=== PATIENT | female | born 1995 | race Caucasian/White ===

== ENCOUNTER 2017-06-26 20:10 | Emergency (ER) | payer MEDICAID ==
--- NOTE | 2017-06-26 20:40 | ED Physician Chart ---
ED Chief Complaint/HPI - Patient Information Date Seen:: 06/26/17 Time Seen:: 20:25 Chief Complaint:: Recurrent nausea/vomiting for about a month. History of Present Illness:: Pt was brought in by private auto. Pt is with LNMP 03/13/17 and with confirmed single IUP by pelvic sonogram 2 days ago at [facility]. Pt has had repeated ER visits to various local ER's because of recurrent nausea/vomiting related to her . Pt has been followed with her [employer] [facility] physician Dr. Evans. Pt has had recurrent nausea/vomiting today with vomitus consists of gastric content. No hematemesis. Last BM about 2 days which was normal in color/consistency. No hematochezia or melena. No abdominal pain or discomfort. No fever. No lightheadedness. Allergies:: Allergies Allergy/AdvReac Type Severity Reaction Status Date / Time No Known Allergies Allergy Verified 06/26/17 20:32 Vitals:: Vital Signs - 8 hr 06/26/17 20:14 Temp 98.2 F HR 123 RR 18 BP 125/74 O2 Sat % 96 Historian:: Patient Family MD/PCP:: Dr. Evans ([employer] [facility]) LMP:: 03/13/17 Review:: Nurse's Note Reviewed ED Review of Systems - Review of Systems General/Constitutional: No fever, No chills, No weight loss, No weakness, No edema, No loss of appetite Skin: No skin lesions, No rash, No bruising Head: No headache, No light-headedness Eyes: No loss of vision, No pain, No diplopia ENT: No earache, No nasal drainage, No sore throat Neck: No neck pain, No swelling, No stiffness, No mass noted Cardio Vascular: No chest pain, No palpitations, No edema Pulmonary: No SOB, No cough, No wheezing GI: Nausea, Vomiting, No diarrhea, No pain, No melena, No hematochezia, No constipation, No hematemesis G/U: No dysuria, No frequency, No hematuria Press Hand: No vaginal discharge, No abnormal vaginal bleed Musculoskeletal: No bone or joint pain, No back pain, No muscle pain Endocrine: No polyuria, No polydipsia Psychiatric: No prior psych history Hematopoietic: No bruising, No lymphadenopathy Allergic/Immuno: No urticaria, No angioedema Neurological: No syncope, No focal symptoms, No weakness, No paresthesia, No headache, No dizziness, No confusion ED Past Medical History - Past Medical History Past Medical History: No significant medical hx Family History: Diabetes Melitus (mother) Social History: Non Smoker, No Alcohol, No Drug Use, Single, Other (lives with her significant other.) Employment:: unemployed. Surgical History: None Psychiatricy History: None Medication: Reviewed Family Medical History - Family Member Mother Hx Family Diabetes: Yes ED Physical Exam - Physical Examination General/Constitutional: Awake, Well-developed, well-nourished, Alert, No distress, GCS 15, Non-toxic appearing, Ambulatory Other Gen/Cons comments:: Breathes comfortably, speaks clearly, interacts normally, and ambulates without difficulty. Head: Atraumatic Eyes: Lids, conjuctiva normal, PERRL, EOMI Other Eyes comments:: no scleral icterus. Skin: No rash, No skin lesions, No ecchymosis, No lymphadenopathy ENMT: External ears, nose nl, Nasal exam nl, Lips, teeth, gums nl, Oropharynx nl Other ENMT comments:: Mucous membrane slightly dry. Neck: Nontender, Full ROM w/o pain, No nuchal rigidity, No mass, No stridor Respiratory: Nl effort/Exclusion, Clear to Auscultation, No Wheeze/Rhonchi/Rales Cardio Vascular: No murmur, gallop, rubs Other Cardio Vascular comments:: Regular rhythm with mild tachycardia. HR 112. GI: No tenderness/rebounding/guarding, No organomegaly, Normal BS's, Nondistended Other GI comments:: Abdomen is obese but soft. : No CVA tenderness Extremities: No tenderness or effusion, Full ROM, normal strength in all extremities, No edema, Normal digits & nails Neuro/Psych: Alert/oriented (oriented x 3), Mood normal, Normal gait, No focal deficits ED Labs/Radiology/EKG Results - Lab Results Results: Laboratory Tests 06/26/17 06/26/17 06/26/17 20:59 20:59 20:59 WBC 17.0 H RBC 5.17 H Hgb 15.5 Hct 45.4 MCV 87.9 MCH 30.0 MCHC Differential 34.2 RDW 12.0 Plt Count 279 MPV 10.5 Neutrophils % 81.8 H Lymphocytes % 9.1 L Monocytes % 6.0 Eosinophils % 0.1 Basophils % 3.0 H Sodium 132 L Potassium 2.9 L* Chloride 99 Carbon Dioxide 13.4 L Anion Gap 22.5 H BUN 6 L Creatinine 0.6 Est GFR ( Amer) > 60.0 Est GFR (Non-Af Amer) > 60.0 BUN/Creatinine Ratio 10.0 Glucose 110 H Whole Bld Lactic Acid 1.23 Calcium 10.8 H Urine Source Urine Color Urine Clarity Urine pH Ur Specific [place] Urine Protein Urine Glucose (UA) Urine Ketones Urine Blood Urine Nitrate Urine Bilirubin Urine Urobilinogen Ur Leukocyte Esterase Urine RBC Urine WBC Ur Epithelial Cells Amorphous Sediment Urine Bacteria Hyaline Casts Urine Mucus 06/26/17 21:00 WBC RBC Hgb Hct MCV MCH MCHC Differential RDW Plt Count MPV Neutrophils % Lymphocytes % Monocytes % Eosinophils % Basophils % Sodium Potassium Chloride Carbon Dioxide Anion Gap BUN Creatinine Est GFR ( Amer) Est GFR (Non-Af Amer) BUN/Creatinine Ratio Glucose Whole Bld Lactic Acid Calcium Urine Source CLEAN C Urine Color YELLOW Urine Clarity HAZY Urine pH 6.0 Ur Specific [place] >= 1.030 Urine Protein 100 H Urine Glucose (UA) NEGATIVE Urine Ketones >=80 H Urine Blood TRACE Urine Nitrate NEGATIVE Urine Bilirubin SMALL H Urine Urobilinogen 1.0 Ur Leukocyte Esterase NEGATIVE Urine RBC 0-2 Urine WBC 2-5 Ur Epithelial Cells MANY Amorphous Sediment FEW URATES Urine Bacteria FEW Hyaline Casts 0-2 H Urine Mucus FEW ED Septic Shock - . Is Septic Shock (SBP<90, OR Lactate>4 mmol\L) present?: No - <6hrs of presentation: Vital Signs: Vital Signs - 8 hr 06/26/17 20:14 Temp 98.2 F HR 123 RR 18 BP 125/74 O2 Sat % 96 ED Reassessment (Disposition) - Reassessment Reassessment:: 2214 Pt remains stable. Lab results have been reviewed with pt. Management plan has been discussed. Pt is to be continued on IV hydration. 2246 Pt overall feels better, but she is still unable to tolerate oral hydration without N/V. Case was discussed with front end developer physician Dr. Wilson at about 2240. He recommended pt to be transferred to a hospital where there is [facility] service available. [id number] Woodward was contacted earlier, who accepted pt for transfer to [facility] in [place] where pt receives [facility] care. Pt is to be transported there via ambulance for higher level of care. Reassessment Condition:: Improved - Diagnosis Diagnosis:: Hyperemesis of . - Patient Disposition Discharge/Transfer:: Acute Care (other hosp) ([facility] in [place].) Accepting Physician:: Dr. Woodward Transport Method:: BLS Time:: 01:15 Condition at Disposition:: Stable, Improved
[2017-06-26] MEDS ORDERED: Sodium Chloride 0.9% 500 ML IV ONE (20:50)
[2017-06-26 21:13] LABS: % EOSINOPHILS 0.1 % (0.0-5.0); % LYMPHOCYTES 9.1 % (20.0-50.0); % NEUTROPHILS 81.8 % (40.0-80.0); HEMATOCRIT 45.4 % (41.0-60); HEMOGLOBIN 15.5 gm/dL (12-16); MEAN CELL VOLUME 87.9 fl (81-100); MEAN CORPUSCULAR HGB CONC 34.2 pg (28.0-36.0); MEAN PLATELET VOLUME 10.5 fl; PLATELET COUNT 279 Th/cmm (150-400); RED BLOOD COUNT 5.17 Mil/cmm (3.80-5.10)
[2017-06-26 21:23] LABS: ANION GAP 22.5 (7.0-16.0); BUN - UREA NITROGEN 6 mg/dL (7-25); CALCIUM SERUM 10.8 mg/dL (8.6-10.3); CARBON DIOXIDE 13.4 mEq/L (21.0-31.0); CHLORIDE 99 mEq/L (98-107); CREATININE - SERUM 0.6 mg/dL (0.6-1.2); GLUCOSE 110 mg/dL (70-105); SODIUM SERUM 132 mEq/L (136-145)
[2017-06-26 21:29] LABS: POTASSIUM SERUM 2.9 mEq/L (3.5-5.1)
[2017-06-26] MEDS ORDERED: Potassium Chloride 20 mEq ER Tab PO ONE ×2 (21:56→22:03)
[2017-06-26 21:58] LABS: URINE BILIRUBIN SMALL (NEGATIVE); URINE BLOOD TRACE (NEGATIVE); URINE GLUCOSE (UA) NEGATIVE (NEGATIVE); URINE KETONE >=80 mg/dL (NEGATIVE); URINE PROTEIN 100 mg/dL (NEGATIVE)
[2017-06-26 22:01] LABS: URINE COLOR YELLOW
[2017-06-26 22:02] LABS: URINE AMORPHOUS SEDIMENT FEW URATES (NONE SEEN); URINE BACTERIA FEW /hpf (NONE SEEN); URINE EPITHELIAL CELLS MANY /lpf (FEW); URINE HYALINE CAST 0-2 /lpf (0-2); URINE RBC 0-2 /hpf (0-5)
[2017-06-26] MEDS ORDERED: 0.9% NS w/20 mEq KCL 1,000 ML IV ONE ×2 (22:03→22:07)
== END 2017-06-27 01:40 | disposition short-term general hospital (02) ==
LOC: ER 20:10
DX: O21.0 Mild hyperemesis gravidarum (principal); Z3A.00 Weeks of gestation of pregnancy not specified
CPT/HCPCS: 99285; 96361; 96374; 36415; 83605; 85025; 81001; 81025; 80048; J2405; J7040; J3480